=== PATIENT | male | born 2000 | race Caucasian/White ===

== ENCOUNTER 2019-02-27 12:09 | Emergency (ER) | payer OTHER ==
[~2019-02-27] VITALS: Ht 160 cm; Wt 60.0 kg
[2019-02-27] MEDS ORDERED: KETOROLAC 30 MG INJ IM STA (12:22)
[2019-02-27 12:24] VITALS: Ht 160 cm; Wt 60.0 kg
[2019-02-27] MEDS ORDERED: NEOMYC/POLYMYX/BACIT 30 GM OINT TOP ONE (12:30)
[2019-02-27 13:18] VITALS: BP 123/75; PULSE 99; RESP 20
--- NOTE | 2019-02-27 13:21 | ERD ---
ER Documentation Chief Complaint Chief Complaint medical clearance for booking has abrasion on rt arm HPI 18-year-old man brought in by EMS under [employer] custody for medical clearance. Patient was running away from police officers and was tased in the back and fell forward and lost bowel control. He initially stated he had no complaints of pain but when offered an analgesic injection he consented, he stated he has a history of peripheral neuropathy to the right upper extremity and previous injury to the right wrist. He sustained abrasion to the right wrist after being placed in handcuffs as well. He denies chest pain or shortness of breath, no back pain, no headache or blurry vision, no complaints of neck pain hip pain or knee pain. ROS All systems reviewed and are negative except as per history of present illness. PMhx/Soc Medical and Surgical Hx: pt denies Medical Hx, pt denies Surgical Hx Hx Alcohol Use: No Hx Substance Use: No Hx Tobacco Use: Yes Smoking Status: Current every day smoker FmHx Family History: No diabetes Physical Exam Vitals Vital Signs Date Temp Pulse Resp B/P (MAP) Pulse Ox O2 O2 Flow FiO2 Time Delivery Rate 02/27/19 97.8 132 20 136/72 98 12:24 (93) Physical Exam GENERAL: Well-developed, well-nourished, agitated combative, afebrile HEENT: Moist mucous membranes, pink conjunctiva, no cervical spine tenderness or step-off deformities, no goiter, no jaundice or icterus, extraocular movements intact without pain. No submandibular induration, and no pharyngeal erythema NEURO: Alert and oriented 3, cranial nerves II through XII intact bilaterally, pupils equal round reactive to light, no focal deficits or facial asymmetry, sensation intact distally Strength 5/5 in upper and lower extremities bilaterally CARDIAC: Regular rate and rhythm, no murmurs rubs or gallops LUNGS: Clear bilaterally no wheezing crackles or stridor ABDOMEN: Soft nontender, no guarding, no rigidity, no rebound, no psoas sign no obturator sign. SKIN: Warm and dry to touch, he has a superficial skin abrasion to the right radial wrist with mild bleeding no laceration or hematomas noted, and 2 small p uncture wounds to the back where the taser barbs are without active bleeding EXTREMITIES: No clubbing cyanosis or edema, calves are bilaterally symmetrical, no Homans sign, no popliteal cord sign. Distal pulses equal and bilateral PSYCH: Agitated, combative Results 24 hrs Current Medications Medications Dose Sig/Jeanie Start Time Status Last (Trade) Ordered Route PRN Stop Time Admin Dose Reason Admin Ketorolac 30 mg ONCE STAT 02/27/19 DC 02/27/19 Tromethamine IM 12:22 12:53 (Toradol) 02/27/19 12:24 Neomycin/ 1 applic ONCE ONCE 02/27/19 DC 02/27/19 Polymyxin/ TOP 12:30 12:53 Bacitracin 02/27/19 12:31 (Neosporin Topical Oint) Procedures/MDM I administered Toradol 30 mg IM x1. Taser barbs were removed by me without complications, patient tolerated procedure well Right wrist wound was irrigated and cleansed, triple antibiotic ointment was applied. Patient stated his tetanus immunization is up-to-date and last dose was given about 3 years ago. Patient is medically cleared and okay to book. Differential diagnoses considered, included but not limited to acute coronary syndrome, pulmonary embolism, aortic dissection, abdominal aortic aneurysm, sepsis, stroke, meningitis, encephalitis, pneumonia, appendicitis, cholecystitis, bowel obstruction, pyelonephritis, nephrolithiasis, cystitis, as well as metabolic, hematologic, and electrolyte abnormalities. As well as abscess, cellulitis, fractures, and dislocations. Departure Diagnosis: Primary Impression: Encounter for medical clearance for patient hold Additional Impression: Wrist abrasion, non-infected Condition: Stable Patient Instructions: José Shelter Clearance VALENTIN HARE MD February 27, 2019 13:21
== END 2019-02-27 13:18 ==
LOC: E/R 12:09
DX: S60.811A Abrasion of right wrist, initial encounter (principal); F17.210 Nicotine dependence, cigarettes, uncomplicated; W18.39XA Other fall on same level, initial encounter; Y92.9 Unspecified place or not applicable; Z00.00 Encounter for general adult medical examination without abnormal findings
CPT/HCPCS: 96372; J1885